=== PATIENT | female | born 2005 | race Two or more races ===

== ENCOUNTER 2023-01-29 12:21 | Emergency (ER) | payer SELFPAY ==
[~2023-01-29] VITALS: Ht 167.6 cm; Wt 42.0 kg
[2023-01-29 12:30] VITALS: BP 116/73
== END 2023-02-04 21:18 | disposition left against medical advice (07) ==
LOC: ER 12:21
DX: F41.9 Anxiety disorder, unspecified (principal); R07.89 Other chest pain; Z53.21 Procedure and treatment not carried out due to patient leaving prior to being seen by health care provider
CPT/HCPCS: 93005

== ENCOUNTER 2024-08-30 04:16 | Emergency (ER) | payer SELFPAY ==
[~2024-08-30] VITALS: Ht 167.6 cm; Wt 45.4 kg
[2024-08-30 04:16] VITALS: TEMP 98.2
[2024-08-30 04:40] VITALS: BP 115/61; PULSE 103; RESP 24; O2SAT 98
[2024-08-30] MEDS: TETANUS-DIPTH-ACEL PERTUSSIS 0.5ML SYR Tdap IM ONE (04:56)
== END 2024-08-30 06:03 | disposition home or self-care (01) ==
LOC: ER 04:16
DX: S51.811A Laceration without foreign body of right forearm, initial encounter (principal); F12.10 Cannabis abuse, uncomplicated; X58.XXXA Exposure to other specified factors, initial encounter; Y93.89 Activity, other specified; Y92.89 Other specified places as the place of occurrence of the external cause; Y99.8 Other external cause status
CPT/HCPCS: 12002; 90471; 90715; 99152; 99153

== ENCOUNTER 2024-08-30 23:42 | Emergency (ER) | payer BC, OTHER ==
[~2024-08-30] VITALS: Ht 167.6 cm; Wt 47.3 kg
[2024-08-31 00:13] VITALS: BP 111/75; PULSE 105; RESP 18; O2SAT 98
[2024-08-31] MEDS ORDERED: HYDROcodone-ACET 5/325MG TAB PO ONE (02:45)
== END 2024-08-31 03:17 | disposition left against medical advice (07) ==
LOC: ER 23:42
DX: S41.111D Laceration without foreign body of right upper arm, subsequent encounter (principal); M79.601 Pain in right arm; R20.0 Anesthesia of skin; F17.210 Nicotine dependence, cigarettes, uncomplicated; F12.10 Cannabis abuse, uncomplicated; F41.9 Anxiety disorder, unspecified; W25.XXXD Contact with sharp glass, subsequent encounter
CPT/HCPCS: 12002; 73110; 73130

== ENCOUNTER 2024-09-02 17:44 | Emergency (ER) | payer BC ==
[~2024-09-02] VITALS: Ht 167.6 cm; Wt 49.6 kg
[2024-09-02 18:36] VITALS: BP 141/77; PULSE 84; RESP 16; TEMP 98.8; O2SAT 99
[2024-09-02] MEDS: HYDROcodone-ACET 5/325MG TAB PO ONE (21:04)
[2024-09-02] MEDS ORDERED: IBUP-1456 PO (21:04)
== END 2024-09-02 21:18 | disposition home or self-care (01) ==
LOC: ER 18:05
DX: S51.812A Laceration without foreign body of left forearm, initial encounter (principal); F41.9 Anxiety disorder, unspecified; F17.210 Nicotine dependence, cigarettes, uncomplicated; X58.XXXA Exposure to other specified factors, initial encounter; Y93.89 Activity, other specified; Y92.89 Other specified places as the place of occurrence of the external cause; Y99.8 Other external cause status

== ENCOUNTER 2024-12-29 15:58 | Inpatient (IN) | payer BC ==
[~2024-12-29] VITALS: Ht 167.6 cm; Wt 52.2 kg
[~2024-12-29 15:58] MED LIST: IBUP-1456 PO
--- NOTE | 2024-12-29 16:37 | ED.PDOC ---
GI ASSESSMENT HPI Comments Initial Vital Signs: Temp : 98.2 BP:130/71 HR: RR:24 SpO2: 130/71 Past Medical History: ANXIETY, ADHD Past Surgical History: Denies Social History: Denies smoking, PATIENT CONSUMES ETOH PATIENT SMOKES MARIJUANA Medications: No medications. HPI: Poor Historian. 19-year-old female presents to ED for evaluation of anxiety and nonbilious nonbloody nausea and vomiting. Onset of symptoms yesterday. Symptoms associated with some mild tremors. Complains of some slight left upper quadrant abdominal pain. Patient smokes marijuana daily and drinks alcohol daily at n ighttime. Denies any use of any other drugs. Pain in the left upper quadrant area is nonspecific nonradiating. No alleviating or precipitating factors. Patient endorses on, drinking alcoholic seltzers nightly x4 months to alleviate anxiety. Patient denies auditory hallucinations, visual hallucinations, suicidal ideation, or homicidal ideation. REVIEW OF SYSTEMS: CONSTITUTIONAL: Denies acute: fever, diaphoresis, chills, generalized weakness. HEAD: Denies acute: headache, photophobia Eyes: Denies acute: Double vision, vision loss, eye pain, eye discharge. EARS: Denies acute: tinnitus, hearing loss, ear discharge, ear pain, THROAT: Denies acute: sore throat, swelling, difficulty swallowing , pain with swallowing, change in voice. NECK: Denies acute: neck pain, neck swelling, stiff neck. HEART: Denies acute : chest pain, palpitations, LUNGS: Denies acute: SOB, wheezing, cough, hemoptysis ABDOMEN: Denies acute: , diarrhea, melena , hematemesis, hematochezia SKIN: Denies acute: rash, redness, lesions, itchiness. EXTREMITIES: Denies acute: calf pain, numbness, tingling, weakness, denies pain in extremity. Denies acute: Low back pain. Neuro: Denies acute: focal neurological deficit, motor or sensory focal neurological deficit, seizure like activity, confusion, dizziness, change in mental status, loss of bowel or bladder function, cauda equina like symptoms. : Denies acute: dysuria, hematuria, flank pain, increase in urinary frequency. PSYCH: Denies acute: hallucination, suicidal ideation, homicidal ideation. FEMALE: Denies acute: abnormal vaginal bleeding, foul odor, unusual discharge. PHYSICAL EXAM: General: Mild acute distress, awake and alert. Head: normocephalic, atraumatic. Neck: supple, trachea is midline, no swelling. Throat: Normal phonation. Eyes:, no erythema, no purulent discharge, no proptosis, no icterus. Heart: regular rate, regular rhythm, no significant murmur appreciated. Lungs: no apparent respiratory distress, Able to speak in full sentences. No wheezing, no rhonchi, no crackles. No stridors Clear to auscultation bilaterally. Abdomen: Left upper quadrant tender to palpation, non distended, soft, no guarding, no rebound, + bowel sounds. Neuro: Awake, Alert, oriented to name, self, situation, follows commands GCS=15. Speech is normal. Skin: no petechia, no purpura, no cyanosis, non-pale, not jaundice. Lower extremities: --no - Pitting edema no deformity, no focal swelling, no calf TTP. Makes eye contact. moves all four extremities. Face: no apparent facial droop. Ambulating in the ED independently. ED course At 8:55 p.m. p.m. I was notified that the patient was in the lobby and had a witnessed seizure. Patient was evaluated and she said that she had a small seizure yesterday but she failed to mention any of that to us in her initial presentation to the ED in the this visit. Patient is not on any seizure medications. Patient was evaluated again and she suffered a small tongue con tusion. Patient is back to her baseline now. Patient will be given Ativan and Keppra. Chief Complaint: Nausea/Vomiting Time Seen by MD: 16:30 Reviewed Notes: Nurses Notes, Medications, Allergies Allergies: Coded Allergies: NO KNOWN ALLERGIES (Unverified , 01/29/23) Home Meds Active Scripts Ibuprofen (Ibuprofen) 800 Mg Tab, 800 MG PO Q8HP PRN for 5 Days, #15 TAB Prov:HALEY GRISSOM LILA 09/02/24 Information Source: Patient Mode of Arrival: Ambulatory Timing: Days Duration: Since onset Prehospital treatment: None Quality: Cramping Vomitus: Watery Stool: Watery Severity: Moderate Recent: None Recent Hx of: None Pain Location: RUQ Modifying Factors: Nothing Associated sign and symptoms: Nausea, Vomiting, Diarrhea Was a procedure done? Was a procedure done?: No GI differential Dx Differential Diagnosis: Gastritis/PUD, Gastroenteritis, Drug toxicity, Other (As far as the abdominal pain: DDX include Diverticulitis, colitis, viry roenteritis, acute abdomen, SBO, enteritis, constipation, volvulus, appendicitis, Gallbladder disease, choledocolithiasis, ascending cholangitis, pancreatitis, intraAbdominal mass/neoplasm, hepatitis, UTI, pylonephritis, kidney stone, aneurysm, dissection, Inflammatory bowel disease, gastroparesis, ischemic bowel, ovarian torsion, ovarian cyst/mass, tubo-ovarian abscess, , ectopic , PID, STD. As far as the seizure: SEIZUREDDX include not limited to CVA, cerebellar ischemia/infarct, carotid stenosis, vertebral/carotid artery dissection,, vertebrobasillary insufficiency, Intracranial mass/infection/bleed, encephalopathy, elctrolyte abnormality, thyroid disease, multiple sclerosis, hypoglycemia, drug toxicity, cardiac arrhythmia, sub-theraputic anti-convulsion medications, known seizure disorder, pseudo-seizure.) X-Ray, Labs, Meds, VS Vital Signs Date Time Temp Pulse Resp B/P (MAP) Pulse Ox O2 Delivery O2 Flow Rate FiO2 12/29/24 20:00 81 12/29/24 16:30 98.2 87 24 130/71 (90) 100 Lab Test 12/29/24 20:00 12/29/24 16:58 12/29/24 16:32 Range/Units Plasma/Serum Blood Alcohol 6.5 <10 mg/dL White Blood Count 7.7 4.4-10.8 10^3/uL Red Blood Count 4.52 4.0-5.20 10^6/uL Hemoglobin 14.0 12.2-16.2 g/dL Hematocrit 41.5 36.0-46.0 % Mean Corpuscular Volume 91.8 80.0-100.0 fL Mean Corpuscular Hemoglobin 31.0 28.0-32.0 pg Mean Corpuscular Hemoglobin Concent 33.8 32.0-36.0 g/dL Red Cell Distribution Width 16.3 H 11.8-14.3 % Platelet Count 219 140-450 10^3/uL Mean Platelet Volume 8.6 6.9-10.8 fL Neutrophils (%) (Auto) 81.1 H 37.0-80.0 % Lymphocytes (%) (Auto) 11.6 10.0-50.0 % Monocytes (%) (Auto) 6.0 0.0-12.0 % Eosinophils (%) (Auto) 0.3 0.0-7.0 % Basophils (%) (Auto) 1.0 0.0-2.0 % Neutrophils # (Auto) 6.3 1.6-8.6 10 ^3/uL Lymphocytes # (Auto) 0.9 0.4-5.4 10 ^3/uL Monocytes # (Auto) 0.5 0-1.3 10 ^3/uL Eosinophils # (Auto) 0 0-0.8 10 ^3/uL Basophils # (Auto) 0.1 0-0.2 10 ^3/uL Nucleated Red Blood Cells 0.0 % Sodium Level 139 136-145 mmol/L Potassium Level 3.8 3.5-5.1 mmol/L Chloride Level 104 98-107 mmol/L Carbon Dioxide Level 22 20-31 mmol/L Anion Gap 13 5-15 Blood Urea Nitrogen 5 L 9-23 mg/dL Creatinine 0.54 L 0.550-1.02 mg/dL Glomerular Filtration Rate Calc 134 >90 mL/min BUN/Creatinine Ratio 9.3 L 10.0-20.0 Serum Glucose 101 74-106 mg/dL Lactic Acid Level 1.4 0.4-2.0 mmol/L Calcium Level 10.5 H 8.7-10.4 mg/dL Magnesium Level 1.5 L 1.6-2.6 mg/dL Total Bilirubin 0.6 0.2-1.0 mg/dL Aspartate Amino Transferase (AST) 201 H 13-40 U/L Alanine Aminotransferase (ALT) 183 H 7-40 U/L Alkaline Phosphatase 97 46-116 U/L Troponin I High Sensitivity < 3 L </=34 ng/L Total Protein 7.5 5.7-8.2 g/dL Albumin 4.9 H 3.2-4.8 g/dL Lipase 26 12-53 U/L Urine Color Light-yellow Yellow Urine Clarity Clear Clear Urine pH 8.0 5.0-9.0 Urine Specific [place] 1.011 1.001-1.035 Urine Protein Negative Negative Urine Ketones Negative Negative Urine Blood Negative Negative /uL Urine Nitrite Negative Negative Urine Bilirubin Negative Negative Urine Urobilinogen Normal Negative mg/dL Urine Leukocyte Esterase Negative Negative /uL Urine RBC <1 0 - 4 /hpf Urine Microscopic WBC < 1 0-5 /HPF Urine Squamous Epithelial Cells Few <5 /hpf Urine Bacteria None seen None Seen /hpf Urine Glucose Normal Normal mg/dL Urine Test Negative Negative Urine Opiates Screen Neg NEGATIVE Urine Fentanyl Screen Neg NEGATIVE Urine Barbiturates Screen Neg NEGATIVE Urine Phencyclidine Screen Neg NEGATIVE Urine Amphetamines Screen Neg NEGATIVE Urine Benzodiazepines Screen Neg NEGATIVE Urine Cocaine Screen Neg NEGATIVE Urine Cannabinoids Screen Pos NEGATIVE Current Medications Medications (Trade) Dose Ordered Sig/Grace Route Start Time Stop Time Status Last Admin Sodium Chloride 1,000 ml @ 1,000 mls/hr Q1H ONCE IV 12/29/24 16:45 12/29/24 17:44 DC 12/29/24 17:47 Magnesium Sulfate/ Dextrose 100 ml @ 100 mls/hr ONCE ONCE IV 12/29/24 21:00 12/29/24 21:59 DC 12/29/24 21:00 Levetiracetam 100 ml @ 400 mls/hr ONCE ONCE IV 12/29/24 21:00 12/29/24 21:35 DC 12/29/24 21:00 Lorazepam (Ativan Inj) 2 mg ONCE ONCE IV 12/29/24 21:00 12/29/24 21:02 DC 12/29/24 21:00 Thiamine HCl 100 mg ONCE ONCE PO 12/29/24 21:30 12/29/24 21:35 DC 12/29/24 21:30 Time of 1ST Reevaluation: 17:00 Reevaluation 1ST: Unchanged Time of 2ND Reevaluation: 01:52 Reevaluation 2ND: Improved Patient Education/Counseling: Diagnosis, Treatment Family Education/Counseling: No Family Present Comments Patient presented with the above HPI.---nausea and vomiting and anxiety/seizure---workup was initiated. patient was found with the above mentioned diagnosis. the following medications were ordered: please refer to order lists of meds and tests obtained by myself Dr. Santo. Patient ED course and VS have been stabilized. Patient has been reassessed in the ED and remained in a stable condition. Pertinent incidental findings were discussed with the patient and/or family. Patient/family voices understanding and is agreeable with plan. Patient has been observed in the ED adequate length of time to insure improvement/stability. Escalation of care considered: Consideration of escalation to observation or admission Patient was ADMITTED to the medicine team for further evaluation and treatment of their presentation. All the reports of any imaging studies that were ordered by myself were reviewed by myself. Departure 1 Departure Time of Disposition: 18:15 Impression: Primary Impression: Elevated LFTs Additional Impressions: Marijuana abuse Alcohol abuse Anxiety Seizure Hypomagnesemia Disposition: ADMITTED INPATIENT Admit to: Tele Condition: Guarded Discharged With: Self Heart Score Heart Score: Heart Score Response (Comments) Value History N/A 0 EKG N/A 0 Age N/A 0 Risk Factors N/A 0 Troponin N/A 0 Total 0 Critical Care Note Critical Care Time?: Yes (1 hr-critical care time only) I personally scribed for NAFISA SANTO DO ([email or web address]) on 12/29/24 at 16:36. Electronically submitted by Keiko Stevens ([email or web address]). I personally scribed for NAFISA SANTO DO ([email or web address]) on 12/29/24 at 17:07. Electronically submitted by Keiko Stevens ([email or web address]). I personally scribed for NAFISA SANTO DO ([email or web address]) on 12/29/24 at 17:16. Electronically submitted by Keiko Stevens ([email or web address]). I personally scribed for NAFISA SANTO DO ([email or web address]) on 12/29/24 at 17:26. Electronically submitted by Keiko Stevens ([email or web address]). NAFISA SANTO DO Dec 29, 2024 16:36
[2024-12-29 17:10] LABS: Urine Bacteria None Seen /hpf (None Seen)
[2024-12-29 17:11] LABS: Basophils # (auto) 0.1 10 ^3/uL (0-0.2); Eosinophils # (auto) 0 10 ^3/uL (0-0.8); Eosinophils % (auto) 0.3 % (0.0-7.0); Hematocrit 41.5 % (36.0-46.0); Lymphocytes # (auto) 0.9 10 ^3/uL (0.4-5.4); Lymphocytes % (auto) 11.6 % (10.0-50.0); Mean Corpuscular Hgb Conc. 33.8 g/dL (32.0-36.0); Mean Corpuscular Volume 91.8 fL (80.0-100.0); Monocytes # (auto) 0.5 10 ^3/uL (0-1.3); Neutrophils # (auto) 6.3 10 ^3/uL (1.6-8.6); Neutrophils % (auto) 81.1 % (37.0-80.0); Platelet Count (auto) 219 10^3/uL (140-450); Red Blood Cells 4.52 10^6/uL (4.0-5.20); Red Cell Distribution Width 16.3 % (11.8-14.3); White Blood Cell 7.7 10^3/uL (4.4-10.8)
[2024-12-29 17:23] LABS: Urine Blood Negative /uL (Negative); Urine Clarity Clear (Clear); Urine Color Light-Yellow (Yellow); Urine Protein, UAD Negative (Negative); Urine Specific Gravity 1.011 (1.001-1.035); Urine Squamous Epithelial Cell FEW /hpf (<5); Urine Urobilinogen Normal (Negative); Urine WBC < 1 /HPF (0-5)
[2024-12-29 17:29] LABS: Alkaline Phosphatase 97 U/L (46-116); Anion Gap 13 (5-15); BUN/Creatinine Ratio 9.3 (10.0-20.0); Bilirubin, Total 0.6 mg/dL (0.2-1.0); Carbon Dioxide 22 mmol/L (20-31); Chloride 104 mmol/L (98-107); Glucose 101 mg/dL (74-106); Lipase 26 U/L (12-53); Potassium 3.8 mmol/L (3.5-5.1); Sodium 139 mmol/L (136-145)
[2024-12-29 17:30] LABS: Total Protein 7.5 g/dL (5.7-8.2)
[2024-12-29 17:36] LABS: Amphetamine Screen, Urine Neg (NEGATIVE); Barbiturate Scree,Urine Neg (NEGATIVE); Benzodiazephine Screen, Urine Neg (NEGATIVE); Cannabinoid Screen, Urine Pos (NEGATIVE); Cocaine Screen, Urine Neg (NEGATIVE); Opiate Scree,Urine Neg (NEGATIVE); Phencyclidine Screen, Urine Neg (NEGATIVE)
[2024-12-29 17:37] LABS: Alanine Aminotransferase 183 U/L (7-40); Albumin 4.9 g/dL (3.2-4.8); Aspartate Aminotransferase 201 U/L (13-40); Blood Urea Nitrogen 5 mg/dL (9-23); Calcium 10.5 mg/dL (8.7-10.4); Magnesium 1.5 mg/dL (1.6-2.6)
[2024-12-29] MEDS: SODIUM CHLORIDE 0.9% 1,000 ML IV ONE (17:47)
[2024-12-29 20:30] VITALS: PULSE 82; RESP 14; O2SAT 99
[2024-12-29] MEDS: LORazepam 2MG/ML-1ML VIAL IV ONE (21:00)
[2024-12-29] MEDS: levETIRAcetam 1000 mg/100ml 100 ML IV ONE (21:00)
[2024-12-29] MEDS: levETIRAcetam 500 MG/5ML INJ IV ONE (21:00)
[2024-12-29] MEDS: MAGNESIUM SULFATE 1GM/100ML 100 ML IV ONE (21:00)
[2024-12-29] MEDS: THIAMINE HCL 100 MG TAB PO ONE (21:30)
--- NOTE | 2024-12-29 21:32 | DVH ---
CLINICAL HISTORY: seizure fall TECHNIQUE: CT exam of the cervical spine was performed without intravenous contrast. This exam was pe rformed according to our departmental dose optimization program. Up-to-date CT equipment and radiatio n dose reduction techniques are utilized as appropriate. COMPARISON: None FINDINGS: There is normal cervical alignment. The vertebral body heights are maintained. No acute cervical frac ture or subluxation is identified. No significant central or neural foraminal narrowing is identified . The paraspinous soft tissues are unremarkable. The lung apices are clear. IMPRESSION: No acute fracture or traumatic malalignment.
--- NOTE | 2024-12-29 21:43 | DVH ---
CT HEAD WITHOUT CONTRAST INDICATION: seizure EXAM DATE: 12/29/2024 09:05 PM COMPARISON: None RADIATION DOSE: CTDIvol: 56.74 mGy, DLP: 2037.46 mGy*cm PROCEDURE: CT scans of the head were obtained from the vertex to the skull base. Sagittal and coronal reconstructions were provided. All CT scans at this medical facility are performed using dose modulation techniques as appropriate t o a performed exam including the following: Automated exposure control was utilized; adjustment of th e MA and/or KV according to patient size; and use of iterative reconstruction technique. FINDINGS: There is no significant atrophy no midline shift or focal mass effects rivera-white matter di fferentiation appears to be normal midline structures are unremarkable. Pituitary is normal corpus ca llosum is unremarkable 3rd ventricle is normal aqueduct of Sylvius is normal 4th ventricle is normal cerebellum is within normal limits tentorium is normal. There is minimal sinus disease involving the ethmoid air cells in the left sphenoid sinus. IMPRESSION: 1. Minimal sinus disease. No acute intracranial abnormality.
[2024-12-29] MEDS ORDERED: NITROGLYCERIN 0.4 MG SL TAB SL PRN (22:45)
[2024-12-29] MEDS ORDERED: ONDANSETRON HCL 4 MG/2 ML VIAL IV PRN (22:45)
[2024-12-29] MEDS: SODIUM CHLORIDE 0.9% 500 ML IV ONE (22:45)
[2024-12-29] MEDS: chlordiazePOXIDE HCL 25 MG CAP PO SCH (22:45)
[2024-12-29] MEDS ORDERED: MORPHINE SULFATE INJ 2 MG/ml SYRG IV PRN (22:45)
[2024-12-29] MEDS ORDERED: TEMAZEPAM 15 MG CAP PO PRN (22:45)
[2024-12-29] MEDS ORDERED: LORazepam 2MG/ML-1ML VIAL IV PRN (22:45)
[2024-12-29] MEDS: TEMAZEPAM 15 MG CAP PO ONE (22:45)
--- NOTE | 2024-12-29 22:52 | DVHHP2 ---
History of Present Illness Reason for Visit: Alcohol withdrawal History of Present Illness 19-year-old female presents for evaluation of nausea and vomiting. Patient reports having her last alcoholic drink yesterday. She today she presents with nausea, vomiting and body tremors. Patient also had a witnessed seizure in the emergency department lobby. Patient reports oral trauma from the seizure. Denies headache or blurred vision. No head trauma. Patient denies history of seizures. No other acute complaints reported. Past Medical History Anxiety Past Surgical History Denies Family History Noncontributory Smoke: No ALCOHOL: heavy Drugs: Marijuana Lives: with Family Review of Systems Review of Systems Review of systems are currently negative otherwise addressed in HPI. Allergies: Coded Allergies: NO KNOWN ALLERGIES (Unverified , 01/29/23) Exam Vital Signs Vital Signs Date Time Temp Pulse Resp B/P (MAP) Pulse Ox O2 Delivery O2 Flow Rate FiO2 12/29/24 20:00 81 12/29/24 16:30 98.2 24 130/71 (90) 100 Exam Gen: 19-year-old female in no apparent distress Skin: Warm, dry, normal color and texture, no rash. HEENT: Normocephalic atraumatic, mucous membranes moist and pink. Neck: Cervical and supraclavicular nodes normal without enlargement, trachea is midline, thyroid gland is normal without masses. Pulmonary: Clear to auscultation and percussion bilaterally. Cardiac: Sinus tachycardic Abdomen: Soft, nontender, nondistended, bowel sounds present all 4 quadrants, no guarding, no rigidity, no organomegaly. Extremities: No cyanosis, clubbing, no edema Neuro: Cranial nerves II through XII grossly intact, normal affect and speech, no focal motor deficits. Labs/Xrays ORDERING PHYSICIAN: NAFISA MOYER DO PROCEDURE(s): CS2 - CERVICAL WITHOUT CONTRAST REASON: seizure fall ORDER NUMBER(s): [id number], ACCESSION NUMBER(s): [id number] CLINICAL HISTORY: seizure fall TECHNIQUE: CT exam of the cervical spine was performed without intravenous contrast. This exam was performed according to our departmental dose optimization program. Up-to-date CT equipment and radiation dose reduction techniques are utilized as appropriate. COMPARISON: None FINDINGS: There is normal cervical alignment. The vertebral body heights are maintained. No acute cervical fracture or subluxation is identified. No significant central or neural foraminal narrowing is identified. The paraspinous soft tissues are unremarkable. The lung apices are clear. IMPRESSION: No acute fracture or traumatic malalignment. RING PHYSICIAN: NAFISA MOYER DO PROCEDURE(s): HWOCT - HEAD WITHOUT CONTRAST REASON: seizure ORDER NUMBER(s): [id number], ACCESSION NUMBER(s): [id number] CT HEAD WITHOUT CONTRAST INDICATION: seizure EXAM DATE: 12/29/2024 09:05 PM COMPARISON: None RADIATION DOSE: CTDIvol: 56.74 mGy, DLP: 2037.46 mGy*cm PROCEDURE: CT scans of the head were obtained from the vertex to the skull base. Sagittal and coronal reconstructions were provided. All CT scans at this medical facility are performed using dose modulation techniques as appropriate to a performed exam including the following: Automated exposure control was utilized; adjustment of the MA and/or KV according to patient size; and use of iterative reconstruction technique. FINDINGS: There is no significant atrophy no midline shift or focal mass effects rivera-white matter differentiation appears to be normal midline structures are unremarkable. Pituitary is normal corpus callosum is unremarkable 3rd ventricle is normal aqueduct of Sylvius is normal 4th ventricle is normal cerebellum is within normal limits tentorium is normal. There is minimal sinus disease involving the ethmoid air cells in the left sphenoid sinus. IMPRESSION: 1. Minimal sinus disease. No acute intracranial abnormality. Labs Test 12/29/24 20:00 12/29/24 16:58 12/29/24 16:32 Range/Units Plasma/Serum Blood Alcohol 6.5 <10 mg/dL White Blood Count 7.7 4.4-10.8 10^3/uL Red Blood Count 4.52 4.0-5.20 10^6/uL Hemoglobin 14.0 12.2-16.2 g/dL Hematocrit 41.5 36.0-46.0 % Mean Corpuscular Volume 91.8 80.0-100.0 fL Mean Corpuscular Hemoglobin 31.0 28.0-32.0 pg Mean Corpuscular Hemoglobin Concent 33.8 32.0-36.0 g/dL Red Cell Distribution Width 16.3 H 11.8-14.3 % Platelet Count 219 140-450 10^3/uL Mean Platelet Volume 8.6 6.9-10.8 fL Neutrophils (%) (Auto) 81.1 H 37.0-80.0 % Lymphocytes (%) (Auto) 11.6 10.0-50.0 % Monocytes (%) (Auto) 6.0 0.0-12.0 % Eosinophils (%) (Auto) 0.3 0.0-7.0 % Basophils (%) (Auto) 1.0 0.0-2.0 % Neutrophils # (Auto) 6.3 1.6-8.6 10 ^3/uL Lymphocytes # (Auto) 0.9 0.4-5.4 10 ^3/uL Monocytes # (Auto) 0.5 0-1.3 10 ^3/uL Eosinophils # (Auto) 0 0-0.8 10 ^3/uL Basophils # (Auto) 0.1 0-0.2 10 ^3/uL Nucleated Red Blood Cells 0.0 % Sodium Level 139 136-145 mmol/L Potassium Level 3.8 3.5-5.1 mmol/L Chloride Level 104 98-107 mmol/L Carbon Dioxide Level 22 20-31 mmol/L Anion Gap 13 5-15 Blood Urea Nitrogen 5 L 9-23 mg/dL Creatinine 0.54 L 0.550-1.02 mg/dL Glomerular Filtration Rate Calc 134 >90 mL/min BUN/Creatinine Ratio 9.3 L 10.0-20.0 Serum Glucose 101 74-106 mg/dL Lactic Acid Level 1.4 0.4-2.0 mmol/L Calcium Level 10.5 H 8.7-10.4 mg/dL Magnesium Level 1.5 L 1.6-2.6 mg/dL Total Bilirubin 0.6 0.2-1.0 mg/dL Aspartate Amino Transferase (AST) 201 H 13-40 U/L Alanine Aminotransferase (ALT) 183 H 7-40 U/L Alkaline Phosphatase 97 46-116 U/L Troponin I High Sensitivity < 3 L </=34 ng/L Total Protein 7.5 5.7-8.2 g/dL Albumin 4.9 H 3.2-4.8 g/dL Lipase 26 12-53 U/L Urine Color Light-yellow Yellow Urine Clarity Clear Clear Urine pH 8.0 5.0-9.0 Urine Specific [place] 1.011 1.001-1.035 Urine Protein Negative Negative Urine Ketones Negative Negative Urine Blood Negative Negative /uL Urine Nitrite Negative Negative Urine Bilirubin Negative Negative Urine Urobilinogen Normal Negative mg/dL Urine Leukocyte Esterase Negative Negative /uL Urine RBC <1 0 - 4 /hpf Urine Microscopic WBC < 1 0-5 /HPF Urine Squamous Epithelial Cells Few <5 /hpf Urine Bacteria None seen None Seen /hpf Urine Glucose Normal Normal mg/dL Urine Test Negative Negative Urine Opiates Screen Neg NEGATIVE Urine Fentanyl Screen Neg NEGATIVE Urine Barbiturates Screen Neg NEGATIVE Urine Phencyclidine Screen Neg NEGATIVE Urine Amphetamines Screen Neg NEGATIVE Urine Benzodiazepines Screen Neg NEGATIVE Urine Cocaine Screen Neg NEGATIVE Urine Cannabinoids Screen Pos NEGATIVE Assessment/Plan Assessment/Plan Assessment Alcohol withdrawal Short activity secondary to the above Electrolyte imbalance Plan Admit the patient to telemetry to the hospitalist Librium taper Banana bag Seizure precautions in place Maintenance IV fluids Continue treatment per orders. Plan discussed with: Patient Date of Service: Dec 29, 2024 Billing Provider: ANNA MARIE CARRERO Common Visit Codes: [id number] INP/OBS CARE (HIGH) ANNA MARIE CARRERO Dec 29, 2024 22:52
[2024-12-30 06:08] LABS: Chloride 107 mmol/L (98-107); Sodium 140 mmol/L (136-145)
[2024-12-30 06:09] LABS: Anion Gap 12 (5-15); Carbon Dioxide 21 mmol/L (20-31)
[2024-12-30 06:14] LABS: Glucose 79 mg/dL (74-106)
[2024-12-30 06:15] LABS: Magnesium 2.2 mg/dL (1.6-2.6)
[2024-12-30 06:17] LABS: BUN/Creatinine Ratio 9.4 (10.0-20.0); Blood Urea Nitrogen < 5 mg/dL (9-23)
[2024-12-30 07:45] VITALS: PULSE 90; RESP 19; O2SAT 100
[2024-12-30] MEDS: chlordiazePOXIDE HCL 25 MG CAP PO SCH (09:48)
--- NOTE | 2024-12-30 13:56 | DVHPN2 ---
Assessment/Plan Assessment/Plan Progress note 19 F with alcohol use and insomnia admitted for alcohol withdrawal seizure. No hx of DT, prior intubation. 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 Physical exam Alert oriented x3 clear breath sounds s1 s2 rrr abdomen soft nontender no le edema assessment and plan alcohol use alcohol withdrawal witnessed seizure likely alcohol withdrawal hypokalemia hypomagnesemia CIWA protocol, librium taper prn ativan for seizure replete lytes advance diet as tolerated alcohol cessation diet regular dvt ppx ambulatory Plan discussed with: Patient My Orders Orders - LILIAN FIELDS MD Procedure Category Date Status Time Potassium Effervesent PHA 12/30/24 Transmitted Tab (Klor-Con/Ef) 14:00 Date of Service: Dec 30, 2024 Billing Provider: LILIAN FIELDS MD Common Visit Codes: [id number] INP/OBS CARE(HIGH) LILIAN FIELDS MD Dec 30, 2024 13:56
[2024-12-30 14:00] VITALS: TEMP 97.6; O2SAT 99
[2024-12-30] MEDS: POTASSIUM EFFERVESENT TAB 25 MEQ PO ONE (14:42)
[2024-12-30 16:00] VITALS: BP 124/60; PULSE 74; RESP 16
[2024-12-30] MEDS ORDERED: ZOLPIDEM TARTRATE 5 MG TAB PO PRN (16:00)
[2024-12-30] MEDS ORDERED: FOLIC ACID 1 MG, MAGNESIUM SULF SDV 50% 8 MEQ, MULTIPLE VITAMIN 10 ML, THIAMINE INJ 100... INJ SCH (18:00)
[2024-12-31] MEDS ORDERED: THIAMINE 100mg/ml INJ (200mg/2ml VIAL) IV SCH (10:00)
[2024-12-31] MEDS ORDERED: chlordiazePOXIDE HCL 25 MG CAP PO SCH (10:00)
[2024-12-31] MEDS ORDERED: FOLIC ACID 1 MG in D5W 5% 50 ML INJ SCH (10:00)
--- NOTE | 2024-12-31 15:37 | DVHDS2 ---
Discharge Summary Date of Admission Dec 29, 2024 at 22:42 Labs/Diagnostic Data: Laboratory Results Test 12/30/24 04:31 12/29/24 20:00 12/29/24 16:58 12/29/24 16:32 Sodium Level 140 mmol/L (136-145) Potassium Level 3.0 mmol/L (3.5-5.1) Chloride Level 107 mmol/L (98-107) Carbon Dioxide Level 21 mmol/L (20-31) Anion Gap 12 (5-15) Blood Urea Nitrogen < 5 mg/dL (9-23) Creatinine 0.53 mg/dL (0.550-1.02) Glomerular Filtration Rate Calc 135 mL/min (>90) BUN/Creatinine Ratio 9.4 (10.0-20.0) Serum Glucose 79 mg/dL (74-106) Calcium Level 9.0 mg/dL (8.7-10.4) Magnesium Level 2.2 mg/dL (1.6-2.6) Plasma/Serum Blood Alcohol 6.5 mg/dL (<10) White Blood Count 7.7 10^3/uL (4.4-10.8) Red Blood Count 4.52 10^6/uL (4.0-5.20) Hemoglobin 14.0 g/dL (12.2-16.2) Hematocrit 41.5 % (36.0-46.0) Mean Corpuscular Volume 91.8 fL (80.0-100.0) Mean Corpuscular Hemoglobin 31.0 pg (28.0-32.0) Mean Corpuscular Hemoglobin Concent 33.8 g/dL (32.0-36.0) Red Cell Distribution Width 16.3 % (11.8-14.3) Platelet Count 219 10^3/uL (140-450) Mean Platelet Volume 8.6 fL (6.9-10.8) Neutrophils (%) (Auto) 81.1 % (37.0-80.0) Lymphocytes (%) (Auto) 11.6 % (10.0-50.0) Monocytes (%) (Auto) 6.0 % (0.0-12.0) Eosinophils (%) (Auto) 0.3 % (0.0-7.0) Basophils (%) (Auto) 1.0 % (0.0-2.0) Neutrophils # (Auto) 6.3 10 ^3/uL (1.6-8.6) Lymphocytes # (Auto) 0.9 10 ^3/uL (0.4-5.4) Monocytes # (Auto) 0.5 10 ^3/uL (0-1.3) Eosinophils # (Auto) 0 10 ^3/uL (0-0.8) Basophils # (Auto) 0.1 10 ^3/uL (0-0.2) Nucleated Red Blood Cells 0.0 % Lactic Acid Level 1.4 mmol/L (0.4-2.0) Total Bilirubin 0.6 mg/dL (0.2-1.0) Aspartate Amino Transferase (AST) 201 U/L (13-40) Alanine Aminotransferase (ALT) 183 U/L (7-40) Alkaline Phosphatase 97 U/L (46-116) Troponin I High Sensitivity < 3 ng/L (</=34) Total Protein 7.5 g/dL (5.7-8.2) Albumin 4.9 g/dL (3.2-4.8) Lipase 26 U/L (12-53) Urine Color Light-yellow (Yellow) Urine Clarity Clear (Clear) Urine pH 8.0 (5.0-9.0) Urine Specific [place] 1.011 (1.001-1.035) Urine Protein Negative (Negative) Urine Ketones Negative (Negative) Urine Blood Negative /uL (Negative) Urine Nitrite Negative (Negative) Urine Bilirubin Negative (Negative) Urine Urobilinogen Normal mg/dL (Negative) Urine Leukocyte Esterase Negative /uL (Negative) Urine RBC <1 /hpf (0 - 4) Urine Microscopic WBC < 1 /HPF (0-5) Urine Squamous Epithelial Cells Few /hpf (<5) Urine Bacteria None seen /hpf (None Seen) Urine Glucose Normal mg/dL (Normal) Urine Test Negative (Negative) Urine Opiates Screen Neg (NEGATIVE) Urine Fentanyl Screen Neg (NEGATIVE) Urine Barbiturates Screen Neg (NEGATIVE) Urine Phencyclidine Screen Neg (NEGATIVE) Urine Amphetamines Screen Neg (NEGATIVE) Urine Benzodiazepines Screen Neg (NEGATIVE) Urine Cocaine Screen Neg (NEGATIVE) Urine Cannabinoids Screen Pos (NEGATIVE) Other Laboratory Tests 12/30/24 04:31 12/29/24 16:58 Discharge Statement: "Patient was advised to return to the ER or call 911 if any headaches, dizziness, shortness of breath, chest pain, abdominal pain, bleeding, fevers, or worsening of medical condition. Patient was counseled about treatment plan, medications, possible side effects, patientverbalized understanding. All questions were answered to the best of my ability. This discharge took greater then 30 minutes in planning, reviewing documentation, counseling the patient, and discussing with other team members." ASSESSMENT ASSESSMENT Assessment LILIAN FIELDS MD Dec 31, 2024 15:37
[2025-01-01] MEDS ORDERED: chlordiazePOXIDE HCL 25 MG CAP PO SCH (07:00)
== END 2024-12-30 17:15 | disposition left against medical advice (07) | DRG 641 ==
LOC: ER 15:58 → TELE 22:42
PROVIDERS: ADMIT Nurse Practitioner; ATTEND Student in an Organized Health Care Education/Training Program
DX: E87.6 Hypokalemia (principal); F10.139 Alcohol abuse with withdrawal, unspecified; R56.9 Unspecified convulsions; E83.42 Hypomagnesemia; F12.10 Cannabis abuse, uncomplicated; F41.9 Anxiety disorder, unspecified; G47.00 Insomnia, unspecified; Y90.9 Presence of alcohol in blood, level not specified; Z53.29 Procedure and treatment not carried out because of patient's decision for other reasons
CPT/HCPCS: 36415; 70450; 72125; 80048; 80053; 80307; 80320; 81001; 81025; 83605; 83690; 83735; 84484; 85025; G0378